=== PATIENT | male | born 1960 ===

== ENCOUNTER → 2017-12-01 | Day surgery (SDC) | payer BC ==
[~2017-12-01] VITALS: Ht 193 cm; Wt 94.8 kg
[~2017-12-01] MED LIST: LIDOCAINE MPF 1% 5 ML VIAL ONE; LIDOCAINE/SOD BICARB 8.4% SYR ID ONE; NORMOSOL R SOLN(*) 1000 ML BAG 1,000 ML IV PRN; OMEP-125 PO; PROPOFOL EMUL(*) 10MG/ML 20 ML 40 ML ONE
[2017-12-01 12:14] VITALS: BP 151/88
[2017-12-01 13:37] VITALS: BP 89/66
[2017-12-01 14:08] VITALS: BP 92/62
[2017-12-01 14:45] VITALS: BP 121/70
[2017-12-01 14:52] VITALS: BP 118/71
[2017-12-01 14:54] VITALS: BP 115/73
== END ==
LOC: OR 04:11
PROVIDERS: ATTEND Family Medicine
DX: Z12.11 Encounter for screening for malignant neoplasm of colon (principal); Z86.010 Personal history of colon polyps
CPT/HCPCS: 00812; 45378; J2001; J2704

== ENCOUNTER → 2018-12-28 | Outpatient (REF) | payer BC ==
[~2018-12-28] MED LIST changes: -LIDOCAINE MPF 1% 5 ML VIAL ONE; -LIDOCAINE/SOD BICARB 8.4% SYR ID ONE; -NORMOSOL R SOLN(*) 1000 ML BAG 1,000 ML IV PRN; -PROPOFOL EMUL(*) 10MG/ML 20 ML 40 ML ONE
== END ==
LOC: ZZSENDIN 16:48
PROVIDERS: ATTEND Family Medicine
DX: H53.8 Other visual disturbances (principal)
CPT/HCPCS: 85651